=== PATIENT | female | born 1980 | race Hispanic/Latino ===

== ENCOUNTER 2021-05-05 08:49 | Outpatient (CLI) | payer OTHER ==
[2021-05-05 17:37] LABS: SARS-CoV-2 PCR by NAA Not Detected (NotDetected)
== END 2021-05-05 08:50 | disposition home or self-care (01) ==
LOC: CSHLAB 08:49
PROVIDERS: ATTEND Obstetrics & Gynecology
DX: Z01.812 Encounter for preprocedural laboratory examination (principal); Z20.822 Contact with and (suspected) exposure to COVID-19
CPT/HCPCS: U0003; U0005

== ENCOUNTER 2021-05-09 05:27 | Inpatient (IN) | payer OTHER ==
[2021-05-09] MEDS ORDERED: Promethazine HCl 25 MG/ML VIAL IM PRN ×3 (05:38→08:05)
[2021-05-09] MEDS ORDERED: hydrALAZINE 20 MG/ML VIAL SLOW IVP PRN ×2 (05:38→08:05)
[2021-05-09] MEDS ORDERED: Ondansetron PF 4 MG/2 ML Vial IVP PRN ×3 (05:38→08:05)
[2021-05-09] MEDS ORDERED: Bicitra 30 ML UDCUP PO PRN (05:38)
[2021-05-09] MEDS ORDERED: Famotidine/PF 20 mg/2ml Vial SLOW IVP PRN (05:38)
[2021-05-09] MEDS: Lactated Ringer's 1,000 ML IV SCH ×2 (05:50→07:03)
[2021-05-09 06:07] VITALS: BMI 29.2
[2021-05-09] MEDS ORDERED: CEFAZOLIN 2 GM in Premix Bag 1 BAG IVPB SCH (06:30)
[2021-05-09 06:33] LABS: Hemoglobin 10.7 g/dL (12.0-15.5); Mean Corpuscular HGB CONC 32.9 g/dL (32.0-36.0); Mean Corpuscular Hemoglobin 29.8 pg (27.0-33.0); Mean Corpuscular Volume 90.5 fl (81.6-98.3); Mean Platelet Volume 10.9 fl (7.4-10.4); Platelet Count 247 10x3/uL (150-450); RBC Distribution Width 14.3 % (11.5-14.5); Red Blood Cell (RBC) Count 3.59 10x6/uL (3.90-5.03); White Blood Cell (WBC) Count 9.6 10x3/uL (3.5-10.5)
[2021-05-09 07:13] LABS: Hep B Surf Ag Non-Reactive S/CO (NonReactive)
[2021-05-09 07:14] LABS: Syphilis Antibody Nonreactive (Nonreactive); Syphilis Antibody Index 0.04 S/CO (<1.00 Non-Reactive)
[2021-05-09] MEDS ORDERED: Morphine PF 10 MG/10 ML VIAL ONE (07:14)
[2021-05-09] MEDS ORDERED: Ondansetron PF 4 MG/2 ML Vial ONE (07:14)
[2021-05-09] MEDS ORDERED: Oxytocin 10 UNITS/ML VIAL ONE (07:14)
[2021-05-09] MEDS ORDERED: Phenylephrine 40 MG/NS 250 ML 0 ML ONE (07:14)
[2021-05-09] MEDS ORDERED: Dexamethasone 4 mg/ml Vial ONE (07:14)
[2021-05-09] MEDS ORDERED: PHENYLEPHRINE-NS 100 MCG/ML 10 ML SYRINGE ONE (07:14)
[2021-05-09 07:20] LABS: HBSAg Index 0.19 S/CO (0-0.99)
[2021-05-09] MEDS ORDERED: diphenhydrAMINE 50 MG/ML VIAL IVP PRN (07:22)
[2021-05-09] MEDS ORDERED: Fentanyl 100 MCG/2 ML VIAL SLOW IVP PRN (07:22)
[2021-05-09] MEDS ORDERED: Meperidine HCl/PF 25 MG/ML VIAL SLOW IVP PRN (07:22)
[2021-05-09] MEDS ORDERED: Naloxone HCl 0.4 mg/ml Vial IVP PRN ×2 (07:22)
[2021-05-09] MEDS ORDERED: Hydrocerin (Eucerin) Cream 120 gm Jar TOP PRN (07:22)
[2021-05-09] MEDS ORDERED: Ondansetron HCl/PF 4 MG/2 ML Vial IVP PRN (07:22)
[2021-05-09] MEDS ORDERED: L&D-Morphine 4 MG/ML VIAL SLOW IVP PRN (07:22)
[2021-05-09] MEDS ORDERED: Promethazine HCl 25 MG SUPP PR PRN (07:22)
[2021-05-09] MEDS ORDERED: Naloxone HCl 0.4 mg/ml Vial IV PRN (07:22)
[2021-05-09] MEDS ORDERED: Ketorolac Tromethamine 30 MG/ML VIAL IVP SCH (07:30)
[2021-05-09] MEDS ORDERED: Communication Order-Pharmacy FS SCH (07:30)
[2021-05-09] MEDS ORDERED: Methylergonovine 0.2 MG/ML VIAL ONE (07:58)
[2021-05-09] MEDS ORDERED: Boostrix 0.5 ML (Tdap) VIAL IM ONE (08:05)
[2021-05-09] MEDS ORDERED: Lanolin Ointment 7 GM TUBE TOP PRN (08:05)
[2021-05-09] MEDS ORDERED: Simethicone Chewable 80 MG TAB PO PRN (08:05)
[2021-05-09] MEDS ORDERED: diphenhydrAMINE 25 MG CAP PO PRN (08:05)
[2021-05-09] MEDS ORDERED: Bisacodyl 10 MG SUPP PR PRN (08:05)
[2021-05-09] MEDS ORDERED: Phenylephrine 40 MG/NS 250 ML 250 ML ONE (08:14)
[2021-05-09] MEDS: Ferrous Sulfate 325 MG TAB PO SCH ×2 (10:58→21:59)
[2021-05-09] MEDS: Prenatal Vitamin 1 TAB PO SCH (10:58)
[2021-05-09] MEDS: Docusate Calcium (SURFAK) 240 MG CAP PO SCH ×2 (10:58→21:58)
[2021-05-09] MEDS: Ketorolac Tromethamine 30 MG/ML VIAL IVP PRN ×2 (11:42→22:02)
[2021-05-09] MEDS ORDERED: HYDROcodone/Acetaminophen 5/325 mg Tablet PO PRN ×2 (19:35)
[2021-05-09] MEDS ORDERED: Meperidine HCl/PF 25 MG/ML VIAL IM PRN (19:35)
[2021-05-10] MEDS: Ibuprofen 800 MG TAB PO SCH ×3 (05:28→21:15)
[2021-05-10 06:04] LABS: Hemoglobin 9.3 g/dL (12.0-15.5); Mean Platelet Volume 11.1 fl (7.4-10.4); Platelet Count 225 10x3/uL (150-450); RBC Distribution Width 14.5 % (11.5-14.5); White Blood Cell (WBC) Count 9.9 10x3/uL (3.5-10.5)
[2021-05-10] MEDS: Prenatal Vitamin 1 TAB PO SCH (08:29)
[2021-05-10] MEDS: Docusate Calcium (SURFAK) 240 MG CAP PO SCH ×2 (08:30→21:15)
[2021-05-10] MEDS: Ferrous Sulfate 325 MG TAB PO SCH ×2 (08:40→21:15)
[2021-05-11] MEDS: Ibuprofen 800 MG TAB PO SCH (05:35)
[2021-05-11 07:45] VITALS: BP 124/58; TEMP 98.3
[2021-05-11] MEDS: Ferrous Sulfate 325 MG TAB PO SCH (08:17)
[2021-05-11] MEDS: Prenatal Vitamin 1 TAB PO SCH (08:18)
[2021-05-11] MEDS: Docusate Calcium (SURFAK) 240 MG CAP PO SCH (08:18)
== END 2021-05-11 11:40 | disposition home or self-care (01) | DRG 788 ==
LOC: CSHLD 05:27 → CSHPP 12:43
PROVIDERS: ADMIT Obstetrics & Gynecology; ATTEND Obstetrics & Gynecology
PROC: 10D00Z1 Extraction of Products of Conception, Low, Open Approach (ICD-10-PCS; principal; 2021-05-09)
DX: O34.211 Maternal care for low transverse scar from previous cesarean delivery (principal); Z3A.39 39 weeks gestation of pregnancy; Z37.0 Single live birth; O62.2 Other uterine inertia; O99.02 Anemia complicating childbirth; D64.9 Anemia, unspecified
CPT/HCPCS: 36415; 51702; 85027; 86780; 86850; 86900; 86901; 87340; J0690; J1100; J1885; J2274; J2405; J2590; J7120